=== PATIENT | male | born 1975 | race Caucasian/White ===

== ENCOUNTER 2018-08-18 03:54 | Emergency (ER) | payer MEDICAID ==
[~2018-08-18] VITALS: Ht 172.7 cm; Wt 112.5 kg
[2018-08-18 06:50] VITALS: BP 143/94
[2018-08-18 07:02] LABS: Basophils # (auto) 0 uL; Basophils % (auto) 0.1 % (0.0-2.0); Eosinophils # (auto) 0 uL; Hematocrit 47.4 % (41.0-53.0); Hemoglobin 15.9 g/dL (13.5-17.5); Lymphocytes # (auto) 1.2 uL; Lymphocytes % (auto) 7.1 % (10.0-50.0); Mean Corpuscular Hemoglobin 30.8 pg (28.0-32.0); Mean Corpuscular Hgb Conc. 33.5 g/dL (32.0-36.0); Monocytes # (auto) 0.8 uL; Monocytes % (auto) 4.8 % (0.0-12.0); Neutrophils # (auto) 14.7 uL; Platelet Count (auto) 296 10^3/uL (140-450); Red Blood Cells 5.15 10^6/uL (4.5-5.90); Red Cell Distribution Width 13.2 % (11.8-14.3); White Blood Cell 16.7 10^3/uL (4.4-10.8)
[2018-08-18 07:18] LABS: Albumin 4.2 g/dL (3.4-5.0); Calcium 9.2 mg/dL (8.5-10.1); Potassium 4.1 mmol/L (3.5-5.1)
[2018-08-18 07:22] LABS: BUN/Creatinine Ratio 17.7; Bilirubin, Total 0.4 mg/dL (0.2-1.0); Total Protein 8.1 g/dL (6.4-8.2)
== END 2018-08-18 09:13 | disposition home or self-care (01) ==
LOC: ER 03:58
DX: N20.1 Calculus of ureter (principal); N21.0 Calculus in bladder; K76.0 Fatty (change of) liver, not elsewhere classified
CPT/HCPCS: 36415; 74176; 80053; 82150; 83690; 85025

== ENCOUNTER 2020-10-23 09:43 | Emergency (ER) | payer MEDICAID ==
[~2020-10-23] VITALS: Ht 172.7 cm; Wt 105.2 kg
[2020-10-23] MEDS ORDERED: SODIUM CHLORIDE 0.9% 1,000 ML IV ONE ×2 (10:15)
[2020-10-23 10:23] LABS: Basophils # (auto) 0 10 ^3/uL (0-0.2); Basophils % (auto) 0.3 % (0.0-2.0); Eosinophils # (auto) 0.1 10 ^3/uL (0-0.8); Eosinophils % (auto) 0.7 % (0.0-7.0); Hematocrit 44.7 % (41.0-53.0); Hemoglobin 15.2 g/dL (13.5-17.5); Lymphocytes # (auto) 2.1 10 ^3/uL (0.4-5.4); Lymphocytes % (auto) 24.4 % (10.0-50.0); Mean Corpuscular Hemoglobin 31.4 pg (28.0-32.0); Mean Corpuscular Hgb Conc. 34.1 g/dL (32.0-36.0); Mean Corpuscular Volume 92.1 fL (80.0-100.0); Monocytes # (auto) 0.5 10 ^3/uL (0-1.3); Monocytes % (auto) 5.5 % (0.0-12.0); Neutrophils % (auto) 69.1 % (37.0-80.0); Nucleated Red Blood Cells % 0.1 %; Red Blood Cells 4.86 10^6/uL (4.5-5.90); White Blood Cell 8.7 10^3/uL (4.4-10.8)
[2020-10-23 10:43] LABS: BUN/Creatinine Ratio 15.7; Calcium 8.7 mg/dL (8.5-10.1); Potassium 4.1 mmol/L (3.5-5.1)
[2020-10-23 10:54] LABS: Urine Bacteria NONE SEEN /hpf (None Seen); Urine Blood 1+ /uL (Negative); Urine Mucus FEW (None Seen); Urine Specific Gravity 1.031 (1.001-1.035); Urine WBC 1 /hpf (0 - 3)
[2020-10-23] MEDS ORDERED: KETOROLAC TROMETH 30 MG/ML 1ML VIAL IV ONE (11:30)
[2020-10-23] MEDS ORDERED: TAMSULOSIN HYDROCHLORIDE 0.4 MG CAP PO ONE (11:45)
[2020-10-23 12:30] VITALS: BP 124/87
== END 2020-10-23 12:45 | disposition home or self-care (01) ==
LOC: ER 09:43
DX: N20.0 Calculus of kidney (principal)
CPT/HCPCS: 36415; 74176; 80048; 81001; 85025; 85049; 96361; 96374; 99284; J1885; J7030

== ENCOUNTER → 2023-11-14 | Outpatient (CLI) | payer BC ==
[2023-11-14 09:27] LABS: Urine Bacteria None Seen /hpf (None Seen)
[2023-11-14 09:30] LABS: Basophils # (auto) 0 10 ^3/uL (0-0.2); Basophils % (auto) 0.4 % (0.0-2.0); Eosinophils # (auto) 0.1 10 ^3/uL (0-0.8); Hematocrit 41.9 % (41.0-53.0); Hemoglobin 14.1 g/dL (13.5-17.5); Lymphocytes # (auto) 1.5 10 ^3/uL (0.4-5.4); Lymphocytes % (auto) 23.1 % (10.0-50.0); Mean Corpuscular Hemoglobin 31.3 pg (28.0-32.0); Mean Corpuscular Hgb Conc. 33.6 g/dL (32.0-36.0); Monocytes # (auto) 0.4 10 ^3/uL (0-1.3); Monocytes % (auto) 5.6 % (0.0-12.0); Neutrophils # (auto) 4.6 10 ^3/uL (1.6-8.6); Neutrophils % (auto) 68.9 % (37.0-80.0); Red Cell Distribution Width 12.9 % (11.8-14.3); White Blood Cell 6.7 10^3/uL (4.4-10.8)
[2023-11-14 09:42] LABS: Urine Blood 2+ /uL (Negative); Urine Clarity Clear (Clear); Urine Color Yellow (Yellow); Urine Mucus FEW (None Seen); Urine Protein, UAD Negative (Negative); Urine Specific Gravity 1.024 (1.001-1.035); Urine Urobilinogen Normal (Negative); Urine WBC 1 /hpf (0 - 3); Urine pH 5.5 (5.0-9.0)
[2023-11-14 10:22] LABS: Creatinine, Urine 184.49 mg/dL (30.0-125.0)
[2023-11-14 10:30] LABS: Alanine Aminotransferase 14 U/L (7-40); Albumin 4.4 g/dL (3.2-4.8); Alkaline Phosphatase 85 U/L (46-116); Anion Gap 7 (5-15); Aspartate Aminotransferase 9 U/L (13-40); Blood Urea Nitrogen 11 mg/dL (9-23); Calcium 9.4 mg/dL (8.7-10.4); Carbon Dioxide 27 mmol/L (20-30); Chloride 108 mmol/L (98-107); Cholesterol 143 mg/dL (< 200); Glucose 96 mg/dL (74-106); HDL Cholesterol 48 mg/dL (40-59); LDL Cholesterol 92 mg/dL (< 100); Potassium 4.1 mmol/L (3.5-5.1); Sodium 142 mmol/L (136-145); Triglycerides 70 mg/dL (< 150)
[2023-11-14 10:31] LABS: Bilirubin, Total 0.4 mg/dL (0.2-1.0); Total Protein 6.8 g/dL (5.7-8.2)
== END | disposition home or self-care (01) ==
LOC: LAB 09:16
PROVIDERS: ATTEND Internal Medicine
DX: Z12.11 Encounter for screening for malignant neoplasm of colon (principal); R73.03 Prediabetes; E78.5 Hyperlipidemia, unspecified
CPT/HCPCS: 36415; 80053; 80061; 81001; 82043; 82570; 83036; 85025

== ENCOUNTER 2024-06-03 06:33 | Emergency (ER) | payer BC ==
[~2024-06-03] VITALS: Ht 172.7 cm; Wt 93.5 kg
[2024-06-03] MEDS: ONDANSETRON HCL 4 MG/2 ML VIAL IV ONE (06:45)
[2024-06-03] MEDS: SODIUM CHLORIDE 0.9% 1,000 ML IV ONE (06:45)
--- NOTE | 2024-06-03 06:47 | ED.PDOC ---
History of Present Illness HPI Comments 48M previously healthy presents with 6 hours chest wall pain since falling at home and landing on a wooden and pineapple. Patient reports the pain is 6/10 and achy and bilateral. Patient reports it is worse with movement. He said last night he went to use the bathroom and was feeling a little lightheaded when he stood up he felt like he was going to pass out and fell over. He did not hit his head he did not actually lose consciousness. He is on Wegovy at home. His last shot was more than a week ago. He denies any fever chills nausea vomiting diarrhea dysuria or polyuria sick contacts or recent travel. Chief Complaint: Fall Injury Time Seen by MD: 06:41 Primary Care Provider: STEVE Allergies: Coded Allergies: NO KNOWN ALLERGIES (Unverified , 08/18/18) Information Source: Patient Mode of Arrival: Ambulatory Past Medical History PAST MEDICAL HISTORY: Kidney Stones Surgical History: Denies all surgeries Family History Family History: Reviewed,noncontributory to illness Social History Smoker: Non-Smoker Alcohol: Denies ETOH Use Drugs: Denies Drug Use Lives In: Home All Other Systems: Reviewed and Negative Physical Exam General Appearance: No Apparent Distress, Normal HEENT: Normal ENT Inspection, Pharynx Normal, TMs Normal Neck: Full Range of Motion, Non-Tender, Normal, Normal Inspection Respiratory: Chest Non-Tender, Lungs Clear, No Accessory Muscle Use, No Respiratory Distress, Normal Breath Sounds Cardiovascular: No Edema, No JVD, No Murmur, No Gallop, Normal Peripheral P ulses, Regular Rate/Rhythm Breast Exam: Deferred Gastrointestinal: No Organomegaly, Non Tender, No Pulsatile Mass, Normal Bowel Sounds, Soft Genitalia: Deferred Pelvic: Deferred Rectal: Deferred Extremities: No calf tenderness, Normal capillary refill, Normal inspection, Normal range of motion, Non-tender, No pedal edema Musculoskeletal : Apperance: Normal Neurologic: Alert, No Motor Deficits, Normal Affect, Normal Mood, No Sensory Deficits Cerebellar Function: NOT DONE Reflexes: NOT DONE Skin: Dry, Normal Color, Warm Lymphatic: No Adenopathy Was a procedure done? Was a procedure done?: No Differential Dx Considerations may include: Viral syndrome, muscle strain, rib fracture, rib contusion X-Ray, Labs, Meds, VS Vital Signs Date Time Temp Pulse Resp B/P (MAP) Pulse Ox O2 Delivery O2 Flow Rate FiO2 06/03/24 07:38 125 16 95 Room Air 06/03/24 07:38 98.7 125 16 132/87 (102) 95 98.7 06/03/24 07:34 98.7 06/03/24 06:41 98.7 144 20 142/112 (122) 97 Lab Test 06/03/24 07:50 Range/Units White Blood Count 11.7 H 4.4-10.8 10^3/uL Red Blood Count 4.91 4.5-5.90 10^6/uL Hemoglobin 15.2 13.5-17.5 g/dL Hematocrit 45.6 41.0-53.0 % Mean Corpuscular Volume 92.9 80.0-100.0 fL Mean Corpuscular Hemoglobin 30.9 28.0-32.0 pg Mean Corpuscular Hemoglobin Concent 33.3 32.0-36.0 g/dL Red Cell Distribution Width 12.9 11.8-14.3 % Platelet Count 281 140-450 10^3/uL Mean Platelet Volume 8.5 6.9-10.8 fL Neutrophils (%) (Auto) 82.9 H 37.0-80.0 % Lymphocytes (%) (Auto) 11.0 10.0-50.0 % Monocytes (%) (Auto) 5.7 0.0-12.0 % Eosinophils (%) (Auto) 0.2 0.0-7.0 % Basophils (%) (Auto) 0.2 0.0-2.0 % Neutrophils # (Auto) 9.7 H 1.6-8.6 10 ^3/uL Lymphocytes # (Auto) 1.3 0.4-5.4 10 ^3/uL Monocytes # (Auto) 0.7 0-1.3 10 ^3/uL Eosinophils # (Auto) 0 0-0.8 10 ^3/uL Basophils # (Auto) 0 0-0.2 10 ^3/uL Nucleated Red Blood Cells 0.0 % Sodium Level 140 136-145 mmol/L Potassium Level 4.2 3.5-5.1 mmol/L Chloride Level 106 98-107 mmol/L Carbon Dioxide Level 24 20-31 mmol/L Anion Gap 10 5-15 Blood Urea Nitrogen 19 9-23 mg/dL Creatinine 1.03 0.700-1.30 mg/dL Glomerular Filtration Rate Calc 90 >90 mL/min BUN/Creatinine Ratio 18.4 10.0-20.0 Serum Glucose 98 74-106 mg/dL Calcium Level 10.1 8.7-10.4 mg/dL Current Medications Medications (Trade) Dose Ordered Sig/Cary Route Start Time Stop Time Status Last Admin Acetaminophen (Tylenol Tablet) 650 mg ONCE ONCE PO 06/03/24 06:45 06/03/24 06:46 DC 06/03/24 07:34 Time of 1ST Reevaluation: 09:31 Reevaluation 1ST: Improved Patient Education/Counseling: Diagnosis, Treatment Family Education/Counseling: No Family Present Departure 1 Departure Time of Disposition: 09:31 (Patient likely with muscle strain. We will discharge patient home with outpatient follow up) Impression: Primary Impression: Rib contusion Qualified Codes: S20.219A - Contusion of unspecified front wall of thorax, initial encounter Additional Impression: Fall Qualified Codes: W19.XXXA - Unspecified fall, initial encounter Disposition: HOME / SELF CARE / HOMELESS Condition: Stable Additional Instructions: Your workup today was benign. You likely bruised your ribs. For pain you can take the followinam: Ibuprofen 400mg with food Noon: Acetaminophen 1000mg 4pm: Ibuprofen 400mg with food 8pm: Acetaminophen 1000mg You should follow up with your regular doctor within one week to ensure you are doing better. If your symptoms worsen or you have any other concerns then please return to the ER. Discharged With: Self Critical Care Note Critical Care Time?: No Stability Stability form required: No Heart Score Heart Score: Heart Score Response (Comments) Value History N/A 0 EKG N/A 0 Age N/A 0 Risk Factors N/A 0 Troponin N/A 0 Total 0 ANASTASIA AMADOR MD Jun 03, 2024 06:47
--- NOTE | 2024-06-03 07:12 | DVH ---
XY CHEST TWO VIEWS ROUTINE CLINICAL HISTORY: Chest wall pain after fall COMPARISON: None TECHNIQUE: Frontal and lateral view of the chest was obtained FINDINGS: Lines and Tubes: None Lungs: No focal consolidation. Pleura: No effusion. No pneumothorax. Cardiomediastinal contours: Unremarkable Bones: No acute osseous abnormality. IMPRESSION: 1. No acute cardiopulmonary disease.
[2024-06-03] MEDS: ACETAMINOPHEN 325 MG TAB PO ONE (07:34)
[2024-06-03 08:09] LABS: Basophils # (auto) 0 10 ^3/uL (0-0.2); Basophils % (auto) 0.2 % (0.0-2.0); Eosinophils # (auto) 0 10 ^3/uL (0-0.8); Eosinophils % (auto) 0.2 % (0.0-7.0); Hematocrit 45.6 % (41.0-53.0); Hemoglobin 15.2 g/dL (13.5-17.5); Lymphocytes # (auto) 1.3 10 ^3/uL (0.4-5.4); Mean Corpuscular Hemoglobin 30.9 pg (28.0-32.0); Mean Corpuscular Hgb Conc. 33.3 g/dL (32.0-36.0); Mean Corpuscular Volume 92.9 fL (80.0-100.0); Monocytes # (auto) 0.7 10 ^3/uL (0-1.3); Monocytes % (auto) 5.7 % (0.0-12.0); Neutrophils # (auto) 9.7 10 ^3/uL (1.6-8.6); Neutrophils % (auto) 82.9 % (37.0-80.0); Platelet Count (auto) 281 10^3/uL (140-450); Red Blood Cells 4.91 10^6/uL (4.5-5.90); Red Cell Distribution Width 12.9 % (11.8-14.3); White Blood Cell 11.7 10^3/uL (4.4-10.8)
[2024-06-03 08:21] LABS: Chloride 106 mmol/L (98-107); Potassium 4.2 mmol/L (3.5-5.1); Sodium 140 mmol/L (136-145)
[2024-06-03 08:22] LABS: Anion Gap 10 (5-15); Carbon Dioxide 24 mmol/L (20-31)
[2024-06-03 08:23] LABS: Calcium 10.1 mg/dL (8.7-10.4)
[2024-06-03 08:27] LABS: BUN/Creatinine Ratio 18.4 (10.0-20.0); Blood Urea Nitrogen 19 mg/dL (9-23); Glucose 98 mg/dL (74-106)
[2024-06-03 09:44] VITALS: BP 132/87; PULSE 106; RESP 18; TEMP 98.7; O2SAT 98
== END 2024-06-03 09:52 | disposition home or self-care (01) ==
LOC: ER 06:33
DX: S20.219A Contusion of unspecified front wall of thorax, initial encounter (principal); W31.89XA Contact with other specified machinery, initial encounter; Y93.89 Activity, other specified; Y92.89 Other specified places as the place of occurrence of the external cause; Y99.8 Other external cause status
CPT/HCPCS: 36415; 71046; 80048; 85025